=== PATIENT | female | born 1985 | race Caucasian/White ===

== ENCOUNTER → 2017-05-30 | Outpatient (CLI) | payer OTHER | END | disposition home or self-care (01) | LOC: YCFC.O 11:17 | PROVIDERS: ATTEND Nurse Practitioner Family | DX: E06.3 Autoimmune thyroiditis (principal) ==

== ENCOUNTER → 2017-08-22 | Outpatient (CLI) | payer OTHER | END | disposition home or self-care (01) | LOC: YCFC.O 12:09 | PROVIDERS: ATTEND Nurse Practitioner Family | DX: E06.3 Autoimmune thyroiditis (principal) ==

== ENCOUNTER 2018-12-02 20:56 | Emergency (ER) | payer OTHER ==
--- NOTE | 2018-12-02 21:09 | ED.PDOC ---
History of Present Illness - General Chief Complaint: Cardiac Respiratory Arrest Stated Complaint: heaviness in chest Time Seen by Provider: 12/02/18 21:00 - History of Present Illness Allergies/Adverse Reactions: Allergies NO KNOWN ALLERGY Allergy (Unverified 01/29/13 12:49) Home Medications: Ambulatory Orders Levothyroxine Sodium [Synthroid] 25 mcg PO DAILY 12/02/18 Past Medical History (General) - Patient Medical History Hx Seizures: No Hx Stroke: No Hx Dementia: No Hx Asthma: No Hx of COPD: No Hx Cardiac Disorders: No Hx Congestive Heart Failure: No Hx Pacemaker: No Hx Hypertension: No Hx Thyroid Disease: No Hx Diabetes: No Hx Gastroesophageal Reflux: No Hx Renal Disease: No Hx Cancer: No Hx of HIV: No Hx Hepatitis C: No Hx MRSA: No - Vaccination History Hx Influenza Vaccination: No - Social History Hx Tobacco Use: Yes Hx Alcohol Use: No Hx Substance Use: No Hx Substance Use Treatment: No Hx Depression: No - Female History Patient : No Family Medical History - Family History Mother Family History: No Known Progress - Progress Progress: 12/03/18 01:40 Vital Signs - 8 hr 12/02/18 12/02/18 21:09 22:17 Temperature 97.9 F Pulse Rate [ 93 H 86 left] Respiratory 18 18 Rate Blood Pressure 156/114 137/99 [left] O2 Sat by Pulse 98 98 Oximetry 12/03/18 01:42 Vital Signs - 8 hr 12/02/18 12/02/18 21:09 22:17 Temperature 97.9 F Pulse Rate [ 93 H 86 left] Respiratory 18 18 Rate Blood Pressure 156/114 137/99 [left] O2 Sat by Pulse 98 98 Oximetry - EKG/XRAY/CT EKG: Sinus, no ST T wave changes Comments: HR-99 XRAY: chest - no acute chest findings CT Ordered: Yes - chest CTA-no pulmonary embolus or any abnormalities Departure - Departure Clinical Impression: Chest tightness or pressure, Elevated d-dimer Time of Disposition: 01:43 Disposition: Discharge to Home or Self Care Condition: Good Departure Forms: ED Discharge - Pt. Copy, Patient Portal Self Enrollment Instructions: DI for Chest Pain Referrals: Livia Peterson, BUSINESS INTERN [Primary Care Provider] - 1-2 Weeks Home Medications: Ambulatory Orders Levothyroxine Sodium [Synthroid] 25 mcg PO DAILY 12/02/18 Additional Instructions: Return to ER as needed;continue with home medications;follow up with primary Md in 2 weeks for re check
[2018-12-02 21:32] VITALS: TEMP 97.9; O2SAT 98
--- NOTE | 2018-12-02 22:12 | RAD ---
EXAM DESCRIPTION: Chest,1 View CLINICAL HISTORY: 33 years Female, chest heaviness Comparison: 12/03/2006 FINDINGS: Single AP view of the chest. Cardiomediastinal silhouette is within normal limits. No focal lung consolidation. No pleural effusion. No pneumothorax. No acute osseous finding. IMPRESSION: No acute chest finding. Electronically signed by: Maddy Hernandez MD 12/02/2018 10:09 PM POUNCER MACHINE
--- NOTE | 2018-12-03 00:35 | CT ---
CLINICAL HISTORY: chest pressure/elevated d dimer COMPARISON: None. TECHNIQUE: CT CHEST ANGIOGRAPHY WITH IV CONTRAST on 12/02/2018 10:32 PM ENTRY LEVEL PROJECT COORDINATOR. MIPS reconstructions were generated. This exam was performed according to our departmental dose-optimization program, which includes automated exposure control, adjustment of the mA and/or kV according to patient size and/or use of iterative reconstruction technique. MIP images were generated. FINDINGS: Thoracic aorta is normal in course and caliber without aneurysm or dissection. Pulmonary arteries are adequately opacified without acute or chronic filling defects. The heart is normal in size. There is no pericardial effusion. Intrathoracic lymph nodes are not enlarged. There is no pleural effusion, pleural thickening or pneumothorax. Central airways are patent. Lungs are clear with no consolidation, mass or interstitial lung disease. There are no acute abnormalities within the limited images of the upper abdomen. There are no acute osseous findings. No suspicious bony lesions. IMPRESSION: No aortic dissection or aneurysm. No pulmonary embolus. No pneumonia. Electronically signed by: Umang Ball MD 12/03/2018 12:32 AM ENTRY LEVEL PROJECT COORDINATOR
[2018-12-03 02:05] VITALS: BP 137/96
== END 2018-12-03 02:05 | disposition home or self-care (01) ==
LOC: ER 20:56
DX: R07.89 Other chest pain (principal); R79.89 Other specified abnormal findings of blood chemistry; Z87.891 Personal history of nicotine dependence

== ENCOUNTER → 2020-07-11 | Outpatient (CLI) | payer OTHER | LOC: GMAL 16:47 | PROVIDERS: ATTEND Family Medicine | DX: E53.8 Deficiency of other specified B group vitamins (principal); R53.83 Other fatigue; E06.5 Other chronic thyroiditis; E55.9 Vitamin D deficiency, unspecified ==

== ENCOUNTER → 2020-11-28 | Outpatient (CLI) | payer OTHER | LOC: GMAL 17:24 | PROVIDERS: ATTEND Family Medicine | DX: E53.8 Deficiency of other specified B group vitamins (principal); Z79.890 Hormone replacement therapy; E55.9 Vitamin D deficiency, unspecified ==